=== PATIENT | female | born 1945 | race Caucasian/White ===

== ENCOUNTER 2021-04-26 20:01 | Emergency (ER) | payer OTHER ==
[~2021-04-26] VITALS: Ht 167.6 cm; Wt 52.2 kg
[~2021-04-26 20:01] MED LIST: BACTRIM DS TAB1 EACH PO; DESYREL100 MG; ESTRACE0.5 MG; PHENERGAN 25 MG25 M1 PO; PROZAC 20 MG20 M1; RIZATRIPTAN10 MG PO; ZOMIG ZMT5 MG; ZYRTEC
[2021-04-26] MEDS ORDERED: DESYREL150 MG PO (20:35)
[2021-04-26] MEDS ORDERED: HYDROCODON-ACE1 EAC7 PO (21:32)
[2021-04-26 21:45] VITALS: BP 118/49
== END 2021-04-26 21:45 | disposition home or self-care (01) ==
LOC: ER 20:01
DX: M25.562 Pain in left knee (principal); G43.909 Migraine, unspecified, not intractable, without status migrainosus; Z88.1 Allergy status to other antibiotic agents; Z88.6 Allergy status to analgesic agent; Z79.899 Other long term (current) drug therapy